=== PATIENT | female | born 1990 | race Caucasian/White ===

== ENCOUNTER 2018-06-10 19:17 | Emergency (ER) | payer MEDICAID ==
[2018-06-10 19:23] VITALS: BP 134/77
[2018-06-10] MEDS ORDERED: NORCO 5/325 PO STA (21:18)
[2018-06-10 21:48] LABS: Bilirubin,Urine NEG (Negative); Blood,Urine NEG (Negative); Color,Urine Yellow (Yellow); Protein,Urine <15 mg/dL mg/dL (Negative); Urobilinogen,Urine < 2.0 mg/dL (<2.0); WBC,Urine < 1.0 /HPF (0.0-6.0)
--- NOTE | 2018-06-10 23:31 | Ultrasound Report ---
FINAL REPORT PROCEDURE: US OB <= 14 WEEKS FETUS TECHNIQUE: Real-time transabdominal sonography of the uterus, placenta, amniotic fluid, adnexa, and fetus was performed with image documentation. Measurements were obtained to determine age/size. M-mode Doppler was used to document heartbeat. CPT 08271 HISTORY: worsen back pain COMPARISON: No prior studies are available for comparison. FINDINGS: There is a single live intrauterine gestation with heart rate of 158 beats per minute. Cervix i s 3.7 centimeters and the internal os is closed. Amniotic fluid is within normal limits BPD: 2.4 centimeters corresponding to 14 weeks and 1 day FL: 1.2 centimeters corresponding to 13 weeks and 3 days. Mean gestational age 13 weeks and 6 days Expected date of conception: 12/10/2018. IMPRESSION: Single live intrauterine gestation at approximately 13 weeks and 6 days. EDC by US 12/10/2018
--- NOTE | 2018-06-10 23:33 | Ultrasound Report ---
FINAL REPORT PROCEDURE: US OB TRANSVAGINAL TECHNIQUE: Real-time transvaginal sonography of the uterus, placenta, amniotic fluid, adnexa, and fe tus was performed with image documentation. Measurements were obtained to determine age/size. M -mode Doppler was used to document heartbeat. CPT 19833 HISTORY: pelvic pain and COMPARISON: No prior studies are available for comparison. FINDINGS: There is a single live intrauterine gestation with heart rate of 158 beats per minute. Cervix i s 3.7 centimeters and the internal os is closed. Amniotic fluid is within normal limits BPD: 2.4 centimeters corresponding to 14 weeks and 1 day FL: 1.2 centimeters corresponding to 13 weeks and 3 days. Mean gestational age 13 weeks and 6 days Expected date of conception: 12/10/2018. IMPRESSION: Single live intrauterine gestation at approximately 13 weeks and 6 days. EDC by US 12/10/2018
--- NOTE | 2018-06-11 00:14 | Emergency Department Report ---
ED Back Pain/Injury HPI - General Chief Complaint: Back Pain/Injury Stated Complaint: BACK PAIN 13 WEEKS Time Seen by Provider: 06/10/18 21:12 Source: patient Limitations: No Limitations - History of Present Illness Initial Comments: 27-year-old female reports being 13 weeks . Presents metabolic complaining of back pain for about 2 months. The left lower back region causing pain shoot down her left buttocks and leg and sometimes causing her to have trouble walking. She reports no loss of bowel or bladder, no urinary incontinence. No saddle paresthesia and also she denies trauma. There is no vaginal bleeding, no vaginal discharge or dysuria. No fever, chills, sweats, chest palpitation. MD Complaint: back pain Similar Symptoms Previously: Yes Radiation: none Severity: mild Quality: dull, aching Consistency: constant Improves With: none Worsens With: none Associated Symptoms: denies: weakness, numbness, cough, fever/chills, constipation, headaches, abdominal pain, rash, seizure, syncope - Related Data Home Medications Medication Instructions Recorded Confirmed Last Taken Vit 75/Iron/Folic/Om3 1 tab PO DAILY 10/12/15 10/12/15 Unknown [Daily Combo Pack] buPROPion SR [Wellbutrin SR] 1 tab PO DAILY 10/17/15 10/17/15 1 Week Ago ~10/10/15 Allergies Allergy/AdvReac Type Severity Reaction Status Date / Time No Known Allergies Allergy Verified 06/10/18 19:25 ED Review of Systems ROS: Stated complaint: BACK PAIN 13 WEEKS Other details as noted in HPI ED Past Medical Hx - Past Medical History Hx Hypertension: Yes Hx Congestive Heart Failure: No Hx Diabetes: No Hx Deep Vein Thrombosis: No Hx Renal Disease: No Hx Sickle Cell Disease: No Hx Seizures: No Hx Asthma: No Hx COPD: No Hx HIV: No - Surgical History Additional Surgical History: breast reduction/2016 - Social History Smoking Status: Never Smoker Substance Use Type: None - Medications Home Medications: Home Medications Medication Instructions Recorded Confirmed Last Taken Type Vit 75/Iron/Folic/Om3 1 tab PO DAILY 10/12/15 10/12/15 Unknown History [Daily Combo Pack] buPROPion SR [Wellbutrin SR] 1 tab PO DAILY 10/17/15 10/17/15 1 Week Ago History ~05/30/16 ED Physical Exam - General Limitations: No Limitations General appearance: alert, in no apparent distress - Head Head exam: Present: atraumatic, normocephalic - Eye Eye exam: Present: normal appearance, PERRL, EOMI Pupils: Present: normal accommodation - ENT ENT exam: Present: normal exam, mucous membranes moist - Neck Neck exam: Present: normal inspection, full ROM - Respiratory Respiratory exam: Present: normal lung sounds bilaterally. Absent: respiratory distress, rales, rhonchi - Cardiovascular Cardiovascular Exam: Present: regular rate, normal rhythm. Absent: systolic murmur, diastolic murmur, rubs, gallop - GI/Abdominal GI/Abdominal exam: Present: soft, normal bowel sounds, other (no Rovsing, no Cordon Castillo, no Duglas sign, no Helms's point tenderness). Absent: tenderness, guarding, mass, pulsatile mass - Extremities Exam Extremities exam: Present: normal inspection - Back Exam Back exam: Present: normal inspection, other (there is tenderness along the area of the left sacroiliac joint. Pain with Vic's test. Straight leg raise is negative on the left than right. There is no midline tenderness appreciated. No CVA tenderness appreciated.) - Neurological Exam Neurological exam: Present: alert, oriented X3, CN II-XII intact - Psychiatric Psychiatric exam: Present: normal affect, normal mood - Skin Skin exam: Present: warm, dry, intact, normal color. Absent: rash ED Course Vital Signs 06/10/18 19:22 Temperature 99.3 F Pulse Rate 101 H Respiratory 18 Rate Blood Pressure 134/77 [Right] O2 Sat by Pulse 99 Oximetry ED Medical Decision Making - Radiology Data Radiology results: report reviewed [address] [address] Ultrasound Report Signed Patient: JOSE WHITMORE MR#: [id number] : 1990 Acct:[id number] Age/Sex: 27 / F ADM Date: 06/10/18 Loc: ED Attending Dr: Ordering Physician: LESLI PARADA Date of Service: 06/10/18 Procedure(s): US OB transvaginal Accession Number(s): [id number] cc: LESLI PARADA FINAL REPORT PROCEDURE: US OB TRANSVAGINAL TECHNIQUE: Real-time transvaginal sonography of the uterus, placenta, amniotic fluid, adnexa, and fetus was performed with image documentation. Measurements were obtained to determine age/size. M-mode Doppler was used to document heartbeat. CPT 08253 HISTORY: pelvic pain and COMPARISON: No prior studies are available for comparison. FINDINGS: There is a single live intrauterine gestation with heart rate of 158 beats per minute. Cervix is 3.7 centimeters and the internal os is closed. Amniotic fluid is within normal limits BPD: 2.4 centimeters corresponding to 14 weeks and 1 day FL: 1.2 centimeters corresponding to 13 weeks and 3 days. Mean gestational age 13 weeks and 6 days Expected date of conception: 12/10/2018. IMPRESSION: Single live intrauterine gestation at approximately 13 weeks and 6 days. EDC by 12/10/2018 [place]cribed By: [facility] [place]ict[place] By: FARAZ OSORIO Electronically Authenticated By: FARAZ OSORIO Signed Date/Time: 06/10/182332 DD/ 34 TD/TT: 06/10/182334 - Medical Decision Making 7-year-old female, known presents with back pain to the emergency department with symptoms suggestive of a radiculopathy/neuropathy. Ultrasound was normal, showing a healthy single uterine. Her urinalysis is negative as well. Discussed with her in great detail about the musculoskeletal component of what is currently going on so extensively to follow with [facility] for 4 management support with this issue as it could worsen as her progresses. Trauma, no loss of bladder, saddle paresthesia, no evidence of any neurological symptoms at this present time. Critical care attestation.: If time is entered above; I have spent that time in minutes in the direct care of this critically ill patient, excluding procedure time. ED Disposition Clinical Impression: Lumbago with sciatica, left side Disposition: -01 TO HOME OR SELFCARE Is pt being admited?: No Does the pt Need Aspirin: No Condition: Stable Instructions: Lumbar Radiculopathy (ED) Referrals: OSITO SIMMONS MD [Primary Care Provider] - 3-5 Days [facility] [Provider Group] - 3-5 Days
== END 2018-06-11 00:32 | disposition home or self-care (01) ==
LOC: ED 19:17
DX: O26.891 Other specified pregnancy related conditions, first trimester (principal); O10.911 Unspecified pre-existing hypertension complicating pregnancy, first trimester; M54.42 Lumbago with sciatica, left side; Z3A.13 13 weeks gestation of pregnancy
CPT/HCPCS: 76801; 76817; 81001